=== PATIENT | male | born 1975 | race Caucasian/White ===

== ENCOUNTER 2018-01-15 13:41 | Emergency (ER) | payer OTHER, SELFPAY ==
[2018-01-15 13:42] VITALS: BP 133/78; PULSE 95; RESP 16; TEMP 36.6; O2SAT 98
--- NOTE | 2018-01-15 13:51 | CT_ITS ---
STUDY: CT BRAIN WITHOUT CONTRAST REASON FOR EXAM: Male, 42 years old. 4 day history of headaches. RADIATION DOSAGE (If Supplied By Facility): CTDIvol = ( 44.99 ) mGy, DLP = ( 779.24 ) mGycm TECHNIQUE: Transaxial CT imaging of the brain was performed without administration of intravenous contrast material. Individualized dose optimization techniques were used for this CT. COMPARISON: None. FINDINGS: Normal soft tissue structures. Normal calvarium. Normal size ventricles and extra-axial spaces for the patient's age. Normal white matter tracts of the cerebral hemispheres. Normal basal ganglia and thalami. Normal brainstem. Normal cerebellum. There is no intracranial hemorrhage. There are no findings of an acute ischemic infarction. Normal visualized paranasal sinuses. CT/Brain/Head without Contrast IMPRESSION: Normal unenhanced CT scan of the brain. Electronically Signed: Julian Hsu MD at 14:32 EDT Tel [phone], Service support ,
--- NOTE | 2018-01-15 13:57 | ED.DCSUM_ITS ---
- ER Visit Summary Date of Service: 01/15/18 Chief Complaint: Headache History of Present Illness: The patient is a 42 M with history of migraine presents to the emergency department headache. Patient states over the past 6 days, he had a gradual progressive headache. He describes as a pressure behind both eyes. He saw his primary care physician and was started on Imitrex. He states he has been taking 100 mg as prescribed, with little relief. He has been mildly nauseated without vomiting. He denies any visual change. He denies any trouble speaking or swallowing. He is in no pain with chewing. He denies any jaw pain or claudication. He has had no neck pain. He does have history of migraines states that this feels similar, but has not had a migraine in years. He denies any weakness, numbness, tingling. Physical Examination: Well-appearing patient is in no acute distress. Head is normocephalic, atraumatic. Pupils equal round reactive, extraocular muscles intact. There is no temporal artery tenderness. There is no vesicular rash. Neck supple. Kernig's and Brudzinski's are negative. Heart regular rate and rhythm. Lungs clear, chest nontender. Abdomen soft, nontender, nondistended. Neuro exam displays no focal or lateralizing deficit. 2+ symmetric lower extremity reflexes. No clonus. No ataxia or gait abnormality. Test Results: [] Emergency Department Course and Treatment: The patient describes pain in his temples, but he has no tenderness to palpation. There is no diminished pulsation. TMs are clear bilaterally. I did obtain a head CT as he states he has not had a headache this severe. This is unremarkable. With Compazine and Benadryl, his symptoms really did not change. He was again given Decadron and Toradol and had marked improvement. Labs were unremarkable. He is not meningitic. Is not encephalopathic. At this time, I do feel that he is safe for discharge. Patient is comfortable with plan of care. Treatment Plan: [] Disposition: Discharge Impression: Migraine This note was generated with [employer] dictation software. It may contain incorrect words, spelling, and punctuation that were not noted in review of the chart prior to signing ED Disposition - Plan for ED Patient: Disposition: Home or Assisted Living Chief Complaint: Headache Instructions: ED Cephalgia Unspecified Referrals: Barry Molina MD [NON-STAFF] -
[2018-01-15] MEDS: proCHLORPERazine 10 MG/2 ML Vial IV (14:04)
[2018-01-15] MEDS: 0.9% Normal Saline 1,000 ML 999 ML IV (14:04)
[2018-01-15] MEDS: DiphenhydrAMINE 50 MG/ML Syringe IV (14:04)
[2018-01-15 14:18] LABS: Absolute Lymphocyte Count 3.22 X10^3/ul (0.83-4.51); Absolute Neutrophil Count 9.2 X10^3/uL (2.0-7.7); Basophil# 0.04 X10^3/uL; Basophil% 0.3 % (0-1); Eosinophil# 0.36 X10^3/uL; Eosinophils% 2.6 % (0-5); Hematocrit 42.5 % (40-54); Hemoglobin 14.1 g/dl (13.0-16.5); Lymphocyte # 3.22 X10^3/ul (4.0); Lymphocyte % 23.6 % (19-41); Mean Corp Hgb Conc 33.2 g/gl (32-36); Mean Corpuscular Hgb 28.1 pg (27.0-32.0); Mean Corpuscular Volume 84.8 fL (80-94); Mean Platelet Vol. 9.5 fl (6.2-12.0); Monocyte# 0.78 X10^3/uL; Monocyte% 5.7 % (0-10); Neutrophil # 9.24 X10^3/uL (2.7-7.7); Neutrophil % 67.7 % (47-70); POSITIVE COUNT NO; POSITIVE DIFFERENTIAL NO; POSITIVE MORPHOLOGY NO; Platelet Count 335 K/mm3 (150-450); RBC Distribution Width CV 13.6 % (11.6-14.6); RBC Distribution Width SD 42.1 fl (35.1-43.9); Red Blood Count 5.01 M/mm3 (4.6-6.2); White Blood Count 13.7 K/mm3 (4.4-11.0)
[2018-01-15 14:27] LABS: Anion Gap 5 (5-15); BUN 17 mg/dL (7-18); BUN/Creat Ratio 15.7 RATIO (10-20); Calcium,Total 8.7 mg/dL (8.5-10.1); Chloride 105 mmol/L (98-107); Creatinine, Serum 1.08 mg/dL (0.70-1.30); EST Glomerular Filtration Rate 80 mL/min (>60); Est Glom Filt Rate - Afr Amer 97 mL/min (>60); Estimated Creatinine Clearance 87.96 ml/min; Glucose 91 mg/dL (74-106); Potassium 3.7 mmol/L (3.5-5.1); Sodium Level 138 mmol/L (136-145)
[2018-01-15] MEDS: Ketorolac 30 MG/ML Syringe IV (15:01)
[2018-01-15 15:07] VITALS: PULSE 85; O2SAT 98
[2018-01-15 15:46] VITALS: BP 119/67; PULSE 104; RESP 16; O2SAT 98
== END 2018-01-15 15:47 | disposition home or self-care (01) ==
PROVIDERS: Emergency Provider Emergency Medicine
DX: G43.909 Migraine, unspecified, not intractable, without status migrainosus (principal); Z79.899 Other long term (current) drug therapy; Z72.0 Tobacco use
CPT/HCPCS: 70450; 80048; 85025; 96361; 96374; 96375; 99283; J7030; A4216